=== PATIENT | male | born 1980 | race Two or more races ===

== ENCOUNTER 2018-10-04 17:45 | Emergency (ER) | payer SELFPAY ==
[~2018-10-04] VITALS: Ht 190.5 cm; Wt 117.0 kg
[2018-10-04 18:03] VITALS: Ht 190.5 cm; Wt 117.0 kg
[2018-10-04 19:00] LABS: BASOPHIL % 0.4 % (0-2); PLATELET COUNT 259 x10^3mcL (130-400); RED CELL DISTRIBUTION WIDTH 13.6 % (11.5-14.5)
[2018-10-04 19:02] LABS: UA SPECIFIC GRAVITY 1.015 (1.005-1.035); microscopic required? YES; urine erythrocyte 3+ (NEGATIVE)
[2018-10-04 19:19] LABS: CALCIUM 9.8 mg/dL (8.5-10.1); CARBON DIOXIDE 27.8 mmol/L (21-32); CHLORIDE SERUM 104 mmol/L (98-107); CREATININE SERUM 1.1 mg/dL (0.7-1.3); GFR1 > 60 mL/min; GLUCOSE SERUM 121 mg/dL (74-106); POTASSIUM SERUM 4.4 mmol/L (3.5-5.1); SODIUM SERUM 143 mmol/L (136-145)
[2018-10-04 21:08] VITALS: BP 145/103
== END 2018-10-04 21:28 | disposition home or self-care (01) ==
LOC: ED 17:45
PROVIDERS: Emergency Medicine
DX: N13.2 Hydronephrosis with renal and ureteral calculous obstruction (principal); Z98.890 Other specified postprocedural states; Z87.442 Personal history of urinary calculi; Z91.018 Allergy to other foods
CPT/HCPCS: 36415; J1885; J2270; Q0162